=== PATIENT | female | born 1950 | race Hispanic/Latino ===

== ENCOUNTER 2016-08-12 11:22 | Day surgery (SDC) | payer MEDICARE ==
[2016-08-12] MEDS ORDERED: CATHFLO IV ONE (12:12)
[2016-08-12] MEDS ORDERED: WATER FOR INJ (PF) 10 ML ONE (12:22)
[2016-08-12] MEDS ORDERED: WATER FOR INJ (PF) IV ONE (12:41)
[2016-08-12 12:46] VITALS: BP 121/54
== END 2016-08-12 14:50 | disposition home or self-care (01) ==
LOC: OPU 11:22 → MERGE 11:22 → OPU 14:50
PROVIDERS: ATTEND Radiology Diagnostic Radiology
DX: T82.590S Other mechanical complication of surgically created arteriovenous fistula, sequela (principal)
CPT/HCPCS: 96374; J2997